=== PATIENT | female | born 1990 | race Caucasian/White ===

== ENCOUNTER 2021-03-29 21:56 | Emergency (ER) | payer MEDICAID, OTHER ==
[~2021-03-29] VITALS: Ht 165.1 cm; Wt 143.0 kg
[2021-03-30] MEDS ORDERED: ASPIRIN 81MG TABLET PO ONE (00:30)
[2021-03-30] MEDS ORDERED: NITROGLYCERIN 0.4MG TABLET SL SL PRN (00:30)
[2021-03-30 00:58] LABS: BASOPHILS % 0.6 % (0.0-2.0); EOSINOPHILS % 4.1 % (0.0-5.0); HEMATOCRIT. 37.4 % (36.0-48.0); HEMOGLOBIN. 12.2 g/dL (12.0-16.0); LYMPHOCYTES % 25.4 % (20.0-50.0); MEAN CORPUSCULAR HEMOGLOBIN 27.4 pg (28.0-32.0); MEAN CORPUSCULAR VOLUME 83.9 fL (81.0-99.0); MEAN PLATELET VOLUME 8.7 fl (7.4-10.4); MONOCYTES % 5.3 % (2.0-8.0); NEUTROPHILS % 64.6 % (40.0-76.0); PLATELET 362 x1000/uL (130-400); RED BLOOD CELL COUNT 4.45 mill/uL (4.2-5.4); RED CELL DISTRIBUTION WIDTH 13.7 % (11.6-14.6)
[2021-03-30 01:03] LABS: CHLORIDE 106 mEq/L (98-107)
[2021-03-30 01:08] LABS: ETHANOL BLOOD < 10 mg/dL
[2021-03-30 01:25] LABS: *AMPHETAMINES SCREEN URINE NEGATIVE (NEGATIVE); *BARBITURATES SCREEN URINE NEGATIVE (NEGATIVE); *BENZODIAZEPINES SCREEN URINE NEGATIVE (NEGATIVE); *COCAINE SCREEN URINE NEGATIVE (NEGATIVE)
[2021-03-30 01:26] LABS: CANNABINOID URINE SCREEN NEGATIVE (NEGATIVE); METHADONE URINE SCREEN NEGATIVE (NEGATIVE); OPIATES URINE SCREEN NEGATIVE (NEGATIVE); PHENCYCLIDINE URINE SCREEN NEGATIVE (NEGATIVE)
[2021-03-30 01:37] VITALS: BP 125/78
== END 2021-03-30 01:44 | disposition home or self-care (01) ==
LOC: ER 21:56
DX: R07.89 Other chest pain (principal); D72.829 Elevated white blood cell count, unspecified
CPT/HCPCS: 36415; 71045; 80053; 80305; 80320; 83880; 84484; 85025; 93005; 99285; Z7610; G0480

== ENCOUNTER 2021-10-30 13:27 | Emergency (ER) | payer MEDICAID ==
[~2021-10-30] VITALS: Ht 165.1 cm; Wt 140.0 kg
[2021-10-30 13:32] VITALS: BP 144/76
[2021-10-30] MEDS ORDERED: SULF1TAB48 PO (16:58)
[2021-10-30] MEDS ORDERED: AMOX-424 PO (16:58)
[2021-10-30] MEDS ORDERED: NAPR-681 PO (16:58)
== END 2021-10-30 17:12 | disposition home or self-care (01) ==
LOC: ER 13:27
DX: H00.034 Abscess of left upper eyelid (principal); Z98.890 Other specified postprocedural states
CPT/HCPCS: 82962; 99283

== ENCOUNTER 2022-04-23 13:51 | Emergency (ER) | payer MEDICAID, OTHER ==
[~2022-04-23] VITALS: Ht 167.6 cm; Wt 145.0 kg
[~2022-04-23 13:51] MED LIST: AMOX-424 PO; NAPR-681 PO; SULF1TAB48 PO
[2022-04-23 14:02] VITALS: BP 119/62
[2022-04-23] MEDS ORDERED: IBUP-2028 MT (16:28)
== END 2022-04-23 16:45 | disposition home or self-care (01) ==
LOC: ER 14:17
DX: M54.50 Low back pain, unspecified (principal); Z98.890 Other specified postprocedural states
CPT/HCPCS: 81025; 99282

== ENCOUNTER 2022-06-20 09:17 | Emergency (ER) | payer MEDICAID ==
[~2022-06-20] VITALS: Ht 177.8 cm; Wt 145.0 kg
[~2022-06-20 09:17] MED LIST changes: +IBUP-2028 MT
[2022-06-20 09:30] VITALS: BP 118/76
[2022-06-20] MEDS ORDERED: NAPR-681 MT (12:26)
== END 2022-06-20 12:56 | disposition home or self-care (01) ==
LOC: ER 09:17
DX: S93.491A Sprain of other ligament of right ankle, initial encounter (principal); X50.1XXA Overexertion from prolonged static or awkward postures, initial encounter; Y93.89 Activity, other specified; Y92.89 Other specified places as the place of occurrence of the external cause
CPT/HCPCS: 73610; 73630; 99284

== ENCOUNTER 2023-11-21 15:05 | Emergency (ER) | payer MEDICAID ==
[~2023-11-21] VITALS: Ht 167.6 cm; Wt 152.4 kg
[~2023-11-21 15:05] MED LIST changes: +NAPR-681 MT
[2023-11-21 15:08] VITALS: TEMP 98.8; O2SAT 94
[2023-11-21 15:29] LABS: BASOPHILS % 0.7 % (0.0-2.0); EOSINOPHILS % 0.7 % (0.0-5.0); HEMATOCRIT. 37.5 % (36.0-48.0); HEMOGLOBIN. 12.4 g/dL (12.0-16.0); LYMPHOCYTES % 12.5 % (20.0-50.0); MEAN CORPUSCULAR HEMOGLOBIN 27.3 pg (28.0-32.0); MEAN CORPUSCULAR VOLUME 82.8 fL (81.0-99.0); MEAN PLATELET VOLUME 9.1 fl (7.4-10.4); MONOCYTES % 4.5 % (2.0-8.0); NEUTROPHILS % 81.6 % (40.0-76.0); PLATELET 351 x1000/uL (130-400); RED BLOOD CELL COUNT 4.53 mill/uL (4.2-5.4); RED CELL DISTRIBUTION WIDTH 14.9 % (11.6-14.6); WHITE BLOOD COUNT 21.4 x1000/uL (4.5-11.0)
[2023-11-21 15:34] LABS: CHLORIDE 105 mEq/L (98-107); POTASSIUM 4.1 mEq/L (3.5-5.1); SODIUM 137 mEq/L (136-145)
[2023-11-21 15:35] LABS: CARBON DIOXIDE 24 mEq/L (21-32)
[2023-11-21 15:36] LABS: CALCIUM 9.2 mg/dL (8.7-10.4)
[2023-11-21 15:40] LABS: CREATININE 0.7 mg/dL (0.6-1.0); GLUCOSE 114 mg/dL (70-105); UREA NITROGEN BLOOD 7 mg/dL (9-23)
[2023-11-21 15:42] LABS: CLARITY URINE TURBID (CLEAR); COLOR URINE YELLOW (YELLOW); GLUCOSE URINE NEGATIVE (NEGATIVE); KETONES URINE TRACE (NEGATIVE); LEUKOCYTE ESTERASE URINE 2+ (NEGATIVE); NITRITE URINE NEGATIVE (NEGATIVE); OCCULT BLOOD URINE 1+ (NEGATIVE); PH URINE 5.5 (4.5-8.0); PROTEIN URINE 1+ (NEGATIVE); SPECIFIC GRAVITY URINE 1.022 (1.005-1.030)
[2023-11-21 16:16] LABS: SQUAMOUS EPITHELIAL CELL URINE 3+ /lpf (RARE/1+)
[2023-11-21 16:25] LABS: RBC URINE 0-2 /hpf (0-2); WBC URINE 15-25 /hpf (0-2)
[2023-11-21 16:26] LABS: BACTERIA URINE 2+; YEAST URINE NONE SEEN
[2023-11-22] MEDS ORDERED: CEPH500C2 MT (00:43)
[2023-11-22 00:46] VITALS: BP 110/64; PULSE 79; RESP 16
== END 2023-11-22 00:57 | disposition home or self-care (01) ==
LOC: ER 15:05
DX: N39.0 Urinary tract infection, site not specified (principal); Z87.19 Personal history of other diseases of the digestive system; Z79.899 Other long term (current) drug therapy
CPT/HCPCS: 80048; 81003; 81025; 85025; 87086; 87210; 87077; 36415; 99283; Z7610